=== PATIENT | male | born 1960 | race Caucasian/White ===

== ENCOUNTER 2016-04-01 18:21 | Emergency (ER) | payer OTHER ==
[~2016-04-01] VITALS: Ht 180.3 cm; Wt 108.9 kg
[~2016-04-01 18:21] MED LIST: ANTIVERT 25MG #1 PAC PO
[2016-04-01 18:27] VITALS: BP 192/100
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
[2016-04-01] MEDS ORDERED: LISINOPRIL40 M1 PO (20:35)
[2016-04-01] MEDS ORDERED: CIALIS20 M1 PO (20:35)
[2016-04-01] MEDS ORDERED: VYTORIN 10-201 EACH PO (20:37)
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
[2016-04-01] MEDS ORDERED: PERCOCET 5-3251 EACH PO (21:40)
[2016-04-01] MEDS ORDERED: CYCLOBENZAPRINE5 M2 PO (21:40)
== END 2016-04-01 21:54 ==
LOC: ERH 18:21
DX: S16.1XXA Strain of muscle, fascia and tendon at neck level, initial encounter (principal); V49.40XA Driver injured in collision with unspecified motor vehicles in traffic accident, initial encounter
CPT/HCPCS: 72050